=== PATIENT | female | born 1995 | race African-American/Black ===

== ENCOUNTER 2017-07-12 06:30 | Emergency (ER) | payer SELFPAY ==
[2017-07-12] MEDS: LIDOCAINE 1% PF 2 ML VIAL. INJ ×2 (07:00)
== END 2017-07-12 07:29 | disposition home or self-care (01) ==
LOC: ER 06:30
DX: S60.012A Contusion of left thumb without damage to nail, initial encounter (principal); W23.0XXA Caught, crushed, jammed, or pinched between moving objects, initial encounter; Y93.89 Activity, other specified; Y92.89 Other specified places as the place of occurrence of the external cause; Y99.8 Other external cause status
CPT/HCPCS: 10140; 73130; 99284-25